=== PATIENT | male | born 1955 | race Caucasian/White ===

== ENCOUNTER → 2017-05-16 | Outpatient (CLI) | payer OTHER ==
[~2017-05-16] MED LIST: DOXA4 PO; FISH OIL + D31 EACH PO; Omeprazole20 M1 PO
== END ==
LOC: LAB SHORT 08:00 → LAB 08:00 → LAB FUT 05-11 15:35
DX: K21.9 Gastro-esophageal reflux disease without esophagitis (principal)
CPT/HCPCS: 87338

== ENCOUNTER 2017-07-13 07:49 | Day surgery (SDC) | payer OTHER ==
[~2017-07-13] VITALS: Ht 172.7 cm; Wt 93.4 kg
== END 2017-07-13 23:06 | disposition home or self-care (01) ==
LOC: ORSCMMR 07:49 → ORD 09:00 → ORSCMMR 23:06
PROVIDERS: Internal Medicine Gastroenterology
PROC: 0DB68ZX Excision of Stomach, Via Natural or Artificial Opening Endoscopic, Diagnostic (ICD-10-PCS; principal; 2017-07-13 09:00)
PROC: 0DB48ZX Excision of Esophagogastric Junction, Via Natural or Artificial Opening Endoscopic, Diagnostic (ICD-10-PCS; principal; 2017-07-13 09:00)
PROC: 0DBP8ZX Excision of Rectum, Via Natural or Artificial Opening Endoscopic, Diagnostic (ICD-10-PCS; principal; 2017-07-13 09:00)
PROC: 0DBN8ZX Excision of Sigmoid Colon, Via Natural or Artificial Opening Endoscopic, Diagnostic (ICD-10-PCS; principal; 2017-07-13 09:00)
PROC: 0DBM8ZX Excision of Descending Colon, Via Natural or Artificial Opening Endoscopic, Diagnostic (ICD-10-PCS; principal; 2017-07-13 09:00)
PROC: 0DB58ZX Excision of Esophagus, Via Natural or Artificial Opening Endoscopic, Diagnostic (ICD-10-PCS; principal; 2017-07-13 09:00)
PROC: 0DBK8ZX Excision of Ascending Colon, Via Natural or Artificial Opening Endoscopic, Diagnostic (ICD-10-PCS; principal; 2017-07-13 09:00)
DX: K21.9 Gastro-esophageal reflux disease without esophagitis (principal); K44.9 Diaphragmatic hernia without obstruction or gangrene; Z12.11 Encounter for screening for malignant neoplasm of colon; Z86.010 Personal history of colon polyps; D12.2 Benign neoplasm of ascending colon; D12.4 Benign neoplasm of descending colon; D12.5 Benign neoplasm of sigmoid colon; D12.8 Benign neoplasm of rectum; Z87.891 Personal history of nicotine dependence; Z79.899 Other long term (current) drug therapy
CPT/HCPCS: 88305; 88342; J7120

== ENCOUNTER 2023-05-20 16:29 | Observation (INO) | payer OTHER ==
[~2023-05-20] VITALS: Ht 170.2 cm; Wt 104.9 kg
[2023-05-20 17:00] LABS: BASOPHILS ABSOLUTE AUTO 0.07 K/mm3 (0.00-0.23); BASOPHILS PERCENT AUTO 0 % (0-2); EOSINOPHILS ABSOLUTE AUTO 0.24 K/mm3 (0.00-0.68); EOSINOPHILS PERCENT AUTO 1 % (0-6); Hematocrit 44.5 % (37.0-53.0); Hemoglobin 15.1 g/dL (13.5-17.5); IMMATURE GRAN ABSOLUTE AUTO 0.05 K/mm3 (0.00-0.10); IMMATURE GRAN PERCENT AUTO 0 % (0-1); LYMPHOCYTES ABSOLUTE AUTO 2.44 K/mm3 (0.84-5.20); LYMPHOCYTES PERCENT AUTO 14 % (21-46); MONOCYTES ABSOLUTE AUTO 1.59 K/mm3 (0.16-1.47); MONOCYTES PERCENT AUTO 9 % (4-13); Mean Corpuscular HGB 30.2 pg (26.0-34.0); Mean Corpuscular HGB Conc 33.9 g/dL (31.5-36.5); Mean Corpuscular Volume 89 fL (80-100); NEUTROPHILS ABSOLUTE AUTO 12.57 K/mm3 (1.96-9.15); NEUTROPHILS PERCENT AUTO 74 % (41-73); Platelet Count 427 K/mm3 (150-400); RDW Coefficient Variation 13.9 % (11.7-14.2); RDW Standard Deviation 44.8 fL (35.1-46.3); White Blood Cell Count 16.96 K/mm3 (4.00-11.30)
[2023-05-20 17:37] LABS: Albumin/Globulin Ratio 0.7 (0.8-1.8); Bilirubin, Total 0.5 mg/dL (0.1-1.0); Bun/Creatinine Ratio 12.2 (12.0-20.0); Calcium, Blood 9.4 mg/dL (8.5-10.1); Creatinine, Blood 1.15 mg/dL (0.60-1.20); Globulin, Blood 4.4 g/dL (2.2-4.0); Potassium, Blood 3.6 mmol/L (3.5-5.5); Total Protein, Blood 7.4 g/dL (6.4-8.2)
[2023-05-20] MEDS ORDERED: NS 1,000 ML IV SCH (20:45)
[2023-05-20] MEDS ORDERED: Ondansetron HCl 2 MG / ML 2ML Vial IV ONE (20:45)
[2023-05-20] MEDS ORDERED: HYDROmorphone HCl/Pf 1MG SYR IV ONE (20:45)
[2023-05-20] MEDS ORDERED: Piperacillin/Tazobactam Sod 4.5 GM in NS 100 ML IV ONE (20:45)
[2023-05-20] MEDS ORDERED: OMEP20ER PO (21:17)
[2023-05-20] MEDS ORDERED: Ventolin/Prove6.7 GM INH (21:17)
[2023-05-20] MEDS ORDERED: ATORVASTATIN CA20 MG PO (21:17)
[2023-05-20] MEDS ORDERED: FLU VACC QS2023-24(6MOS UP)/PF 60 MCG/0.5 ML SYRINGE IM ONE (22:30)
[2023-05-20] MEDS ORDERED: Albuterol HFA200 ACT/6.7 GM INH INH PRN (22:45)
[2023-05-20] MEDS ORDERED: Pantoprazole Sodium 40 MG Injection IV SCH (23:00)
[2023-05-20 23:59] VITALS: BP 139/83
[2023-05-21] VITALS (13 sets, daily range): BP systolic 101–124; BP diastolic 57–94
[2023-05-21] MEDS ORDERED: Ondansetron HCl 2 MG / ML 2ML Vial IV PRN (00:25)
[2023-05-21] MEDS ORDERED: FentaNYL Citrate 50 MCG/ML 2 ML Injection IV PRN (00:25)
[2023-05-21 06:54] LABS: BASOPHILS ABSOLUTE AUTO 0.09 K/mm3 (0.00-0.23); BASOPHILS PERCENT AUTO 1 % (0-2); EOSINOPHILS ABSOLUTE AUTO 0.29 K/mm3 (0.00-0.68); EOSINOPHILS PERCENT AUTO 2 % (0-6); Hematocrit 41.2 % (37.0-53.0); Hemoglobin 13.8 g/dL (13.5-17.5); IMMATURE GRAN ABSOLUTE AUTO 0.06 K/mm3 (0.00-0.10); IMMATURE GRAN PERCENT AUTO 0 % (0-1); LYMPHOCYTES ABSOLUTE AUTO 2.07 K/mm3 (0.84-5.20); LYMPHOCYTES PERCENT AUTO 14 % (21-46); MONOCYTES PERCENT AUTO 12 % (4-13); Mean Corpuscular HGB 29.4 pg (26.0-34.0); Mean Corpuscular HGB Conc 33.5 g/dL (31.5-36.5); Mean Corpuscular Volume 88 fL (80-100); Mean Platelet Volume 9.5 fL (9.1-12.4); NEUTROPHILS ABSOLUTE AUTO 10.98 K/mm3 (1.96-9.15); NEUTROPHILS PERCENT AUTO 71 % (41-73); Platelet Count 412 K/mm3 (150-400); RDW Coefficient Variation 13.9 % (11.7-14.2); RDW Standard Deviation 44.8 fL (35.1-46.3); White Blood Cell Count 15.39 K/mm3 (4.00-11.30)
[2023-05-21] MEDS ORDERED: Indocyanine Green 25 MG Vial IV STA (07:13)
[2023-05-21 07:25] LABS: Albumin, Blood 2.6 g/dL (3.4-5.0); Albumin/Globulin Ratio 0.6 (0.8-1.8); Bilirubin, Total 0.8 mg/dL (0.1-1.0); Bun/Creatinine Ratio 10.5 (12.0-20.0); Calcium, Blood 8.9 mg/dL (8.5-10.1); Creatinine, Blood 1.05 mg/dL (0.60-1.20); Globulin, Blood 4.1 g/dL (2.2-4.0); Potassium, Blood 4.1 mmol/L (3.5-5.5); Total Protein, Blood 6.7 g/dL (6.4-8.2)
--- NOTE | 2023-05-21 07:50 | NUR ---
BEDSIDE REPORT GUDELIA BLOOD AND THIS RN COMPLETED BEDSIDE REPORT. AT TIME OF REPORT PT WAS ALERT, ORIENTED AND ABLE TO PARTICIPATE WITH REPORT. PT ASSESSED FOR PAIN AT TIME OF REPORT, PT DENIED PAIN. PT ASSESSED FOR ANY QUESTIONS OR CONCERNS. PT WANTED TO KNOW WHEN HE WOULD GO TO OR, PT EDUCATED THAT OR TIME WAS UNDETERMINED BUT HE WAS SECOND IN LINE FOR SURGERY WITH DR. VAZQUEZ TODAY. HE WAS ALSO EDUCATED THAT IF ANOTHER PATIENT DEVELOPS A MORE LIFE THREATENING NEED THEY WILL GO FIRST. PT VERBALIZED UNDERSTANDING. PT WISHED TO REST. LIGHT TURNED OFF, CALL LIGHT WITHIN REACH AND DOOR CLOSED AFTER REPORT WAS COMPLETE.
--- NOTE | 2023-05-21 08:10 | NUR ---
PT ADMITTED THIS SHIFT FOR PREOP GALL BLADDER. PT DENIED NEED FOR PAIN MEDS.NPO SINCE ARRIVAL.VOIDING.
--- NOTE | 2023-05-21 08:30 | NUR ---
PAIN DURING AM ASSESSMENT PT EXPRESSED FRUSTRATION THAT HE HAD NOT BEEN GIVEN PAIN MEDICATION SINCE HE WAS IN THE ER AND WANTED TO KNOW WHY. PT REMINDED THAT PAIN WAS ASSESSED DURING SHIFT REPORT AND HE HAD DENIED PAIN. PT STATED "DON'T YOU JUST ASSUME THE PATIENT HAS PAIN?" PT WAS EDUCATED THAT IT IS UNSAFE TO ASSUME A PATIENT HAS PAIN AND STAFF ARE REQUIRED TO ASSESS FOR PAIN. PT WAS ENCOURAGED TO COMMUNITCATE HIS PAIN LEVEL AND CONCERNS TO STAFF IN ORDER TO HAVE APPROPRIATE PAIN MANAGEMENT. PT THEN STATED HE HAS ASKED QUESTIONS ABOUT HIS CARE BUT HAS BEEN TOLD "I DON'T KNOW" TO MANY OF HIS QUESTIONS. PT WAS EDUCATED THAT STAFF DO NOT ALWAYS HAVE THE ANSWER TO QUESTIONS THAT ARE ASKED BUT WE WILL ATTEMPT TO PROVIDE LOOK FOR AND PROVIDE ANSWERS TO HIS QUESTIONS. PT AND HIS SPOUSE APPEARED TO UNDERSTAND EDUCATION. IV PAIN MEDICATION PROVIDED PER EMAR, PT REPORTED IMPROVED PAIN CONTROL AFTER FENTANYL. AFTER PAIN MEDICATION PT RATED HIS PAIN AT 4/10 AND STATED PAIN LEVEL WAS TOLERABLE.
[2023-05-21] MEDS ORDERED: Lactated Ringer's 1,000 ML IV ONE (08:58)
[2023-05-21] MEDS ORDERED: Enoxaparin 40 MG/0.4 ML SYR SC SCH (09:00)
--- NOTE | 2023-05-21 09:00 | NUR ---
DR. CULLEN ROUNDED AT [address] VAZQUEZ ROUNDED AT APPROXIMATELY 0820.
--- NOTE | 2023-05-21 09:15 | NUR ---
PT TAKEN TO DAY SURGERY AT 0915 BY BRITTNEY WEBBER RN.
--- NOTE | 2023-05-21 09:22 | NUR ---
Ambulatory in Day Surgery History, Chart, Medications and Allergies reviewed before start of procedure.Lungs clear T/O to Auscultation. Patient confirms NPO status and agrees with scheduled surgery.
[2023-05-21] MEDS ORDERED: Bupivacaine 0.5% HCl 5 MG/ML 30MLVIAL ONE (09:38)
[2023-05-21] MEDS ORDERED: propofoL 20 ML IV ONE (09:43)
[2023-05-21] MEDS ORDERED: Rocuronium Bromide 10 MG/ML 5ML Injection IV ONE (09:44)
[2023-05-21] MEDS ORDERED: Ketorolac Tromethamine 30mg Vial ONE (09:44)
[2023-05-21] MEDS ORDERED: Glycopyrrolate 0.2 MG/ML 5ML VIAL ONE (09:44)
[2023-05-21] MEDS ORDERED: FentaNYL Citrate 50 MCG/ML 2 ML Injection ONE ×2 (09:44→10:30)
[2023-05-21] MEDS ORDERED: Sugammadex Sodium 200 MG/2ML SDV (100 MG/ML) ONE (09:44)
[2023-05-21] MEDS ORDERED: Dexamethasone Sod Phos 10 MG/ML 1ML VIAL ONE (09:44)
[2023-05-21] MEDS ORDERED: Ondansetron HCl 2 MG / ML 2ML Vial ONE (09:44)
[2023-05-21] MEDS ORDERED: CefOXitin Sodium 2,000 MG in NS 100 ML IV SCH (10:00)
[2023-05-21] MEDS ORDERED: Labetalol HCL 5 MG/ML 4ML Injection (Single Dose) ONE (10:40)
--- NOTE | 2023-05-21 13:19 | NUR ---
PT ARRIVED BACK TO THE ROOM AT APPROXIMATELY 1300. PAIN MANAGED WITH FENTANYL. LAP SITES X4 CLOSED WITH WOUND GLUE C/D/I. PT ALERT AND ORIENTED X3, PT NEEDED REORIENTED TO PLACE. PT STATED MEMORY OF HIS SITUATION IS RETURNING. ABD REMAINS DISTENDED. PT RESTING IN BED, S/O AT THE BEDSIDE, CALL LIGHT WITHIN REACH.
--- NOTE | 2023-05-21 13:24 | NUR ---
UNABLE TO COMPLETE HOME MEDICATION RECONCILIATION AT THIS TIME. PT AND HIS ARE UNSURE OF DOSAGES. PT'S PHARMACY IS CLOSED, UNABLE TO VERIFY HOME MEDICATIONS THROUGHT THEM. PT'S STATES SHE WILL CALL WHEN SHE GETS HOME TO RELAY DOSAGES AND INSTRUCTIONS OFF OF MEDICATION BOTTLES.
[2023-05-21] MEDS ORDERED: Acetaminophen 325 MG TABLET PO PRN (15:25)
[2023-05-21] MEDS ORDERED: OxyCODONE HCL 5 MG TAB PO PRN (15:25)
[2023-05-21] MEDS ORDERED: OXYC5 PO (17:39)
[2023-05-21] MEDS ORDERED: AMOCLA875 PO (17:39)
[2023-05-21] MEDS ORDERED: Atorvastatin 40 MG Tab PO SCH (18:00)
--- NOTE | 2023-05-21 18:12 | NUR ---
DISCHARGE NOTE: PATIENT AND WERE EDUCATED ON DISCHARGE INSTRUCTIONS. BOTH VERBALIZED UNDERSTANDING OF INSTRUCTIONS AND HAD NO FURTHER QUESTIONS AT THIS TIME. BOTH IV'S WERE TAKEN OUT AND WNL. PAIN IS MANAGED WITH PO PAIN MEDS. HARD PERSCRIPTIONS WERE ALREADY FILLED BY AND ALSO FAXED TO THEIR PREFERRED PHARMACY. PATIENTS ABD X4 LAP SITES ARE C/D/I WITH WOUND GLUE. HE IS TOLERATING PO INTAKE AND IS VOIDING. PATIENT IS DRESSED AND HAS PERSONAL ITEMS IN THE ROOM GATHERED. HE IS BEING WHEELCHAIRED OUT TO HIS WIFES CAR TO BE TAKEN HOME.
--- NOTE | 2023-05-21 19:15 | NUR ---
PRIOR TO DISCHARGE PT WAS REMINDED TO TAKE HIS EVENING HOME MEDICATIONS SINCE HE DID NOT TAKE THEM HERE. HE WAS ALSO EDUCATED TO START HIS ANTIBIOTIC TONIGHT WHEN HE GETS HOME.
[2023-05-21] MEDS ORDERED: Doxazosin Mesylate 2 MG Tab PO SCH (20:00)
[2023-05-22] MEDS ORDERED: Omeprazole 20 MG CapCR PO SCH (06:00)
== END 2023-05-21 18:14 | disposition home or self-care (01) ==
LOC: ER 16:29 → SURS 16:30
PROVIDERS: Family Medicine; Physician Assistant; Surgery; ADMIT Internal Medicine
PROC: 8E0W4CZ Robotic Assisted Procedure of Trunk Region, Percutaneous Endoscopic Approach (ICD-10-PCS; principal; 2023-05-21 09:30)
PROC: 0FT44ZZ Resection of Gallbladder, Percutaneous Endoscopic Approach (ICD-10-PCS; principal; 2023-05-21 09:30)
DX: K80.00 Calculus of gallbladder with acute cholecystitis without obstruction (principal); N40.0 Benign prostatic hyperplasia without lower urinary tract symptoms; I25.10 Atherosclerotic heart disease of native coronary artery without angina pectoris; K57.30 Diverticulosis of large intestine without perforation or abscess without bleeding; K21.9 Gastro-esophageal reflux disease without esophagitis; R65.10 Systemic inflammatory response syndrome (SIRS) of non-infectious origin without acute organ dysfunction; K42.9 Umbilical hernia without obstruction or gangrene; N28.1 Cyst of kidney, acquired; Z87.891 Personal history of nicotine dependence
CPT/HCPCS: 36415; 74177; 76705; 80053; 83605; 83690; 85025; 88304; 93005; 93010; 94760; 96365-59; 96375; 99285-25; A9270; C9113; G0378; J0694; J1100; J1170; J1885; J2405; J2543; J2704; J3010; J7030; J7120; Q9967

== ENCOUNTER 2024-07-05 10:02 | Emergency (ER) | payer OTHER ==
[~2024-07-05] VITALS: Ht 175.3 cm; Wt 99.8 kg
[~2024-07-05 10:02] MED LIST changes: +AMOCLA875 PO; +ATORVASTATIN CA20 MG PO; +OMEP20ER PO; +OXYC5 PO; +Ventolin/Prove6.7 GM INH
[2024-07-05] MEDS ORDERED: NS 1,000 ML IV SCH (10:30)
[2024-07-05 11:13] LABS: BASOPHILS ABSOLUTE AUTO 0.07 K/mm3 (0.00-0.23); BASOPHILS PERCENT AUTO 1 % (0-2); EOSINOPHILS ABSOLUTE AUTO 0.38 K/mm3 (0.00-0.68); EOSINOPHILS PERCENT AUTO 3 % (0-6); Hematocrit 45.3 % (37.0-53.0); Hemoglobin 15.4 g/dL (13.5-17.5); IMMATURE GRAN ABSOLUTE AUTO 0.06 K/mm3 (0.00-0.10); IMMATURE GRAN PERCENT AUTO 0 % (0-1); LYMPHOCYTES ABSOLUTE AUTO 2.15 K/mm3 (0.84-5.20); LYMPHOCYTES PERCENT AUTO 15 % (21-46); MONOCYTES ABSOLUTE AUTO 1.69 K/mm3 (0.16-1.47); MONOCYTES PERCENT AUTO 12 % (4-13); Mean Corpuscular Volume 88 fL (80-100); Mean Platelet Volume 9.5 fL (9.1-12.4); NEUTROPHILS ABSOLUTE AUTO 10.35 K/mm3 (1.96-9.15); NEUTROPHILS PERCENT AUTO 70 % (41-73); Platelet Count 447 K/mm3 (150-400); RDW Coefficient Variation 14.1 % (11.7-14.2); Red Blood Cell Count 5.14 M/mm3 (4.30-5.90)
[2024-07-05 11:19] LABS: Influenza A, PCR NEGATIVE (NEGATIVE); Influenza B, PCR NEGATIVE (NEGATIVE); Resp Syncytial Virus, PCR NEGATIVE (NEGATIVE); SARS-Cov-2 (COVID-19) PCR, MMC NEGATIVE (NEGATIVE)
[2024-07-05 11:34] LABS: Albumin, Blood 3.4 g/dL (3.4-5.0); Albumin/Globulin Ratio 0.8 (0.8-1.8); Bilirubin, Total 0.8 mg/dL (0.1-1.0); Bun/Creatinine Ratio 14.3 (12.0-20.0); Calcium, Blood 9.3 mg/dL (8.5-10.1); Creatinine, Blood 0.98 mg/dL (0.60-1.20); Globulin, Blood 4.3 g/dL (2.2-4.0); Potassium, Blood 3.8 mmol/L (3.5-5.5); Total Protein, Blood 7.7 g/dL (6.4-8.2)
[2024-07-05 15:22] LABS: Source, Urine Clean Catch
[2024-07-05 15:30] LABS: Appearance, Urine Hazy (Clear); Bilirubin, Urine Neg (Neg); Blood, Urine Neg (Neg); Color, Urine Yellow (P-Yellow); Glucose Qualitative, Urine Neg (Neg); Ketones, Urine Neg (Neg); Leukocyte Esterase, Urine 1+ (Neg); Nitrite, Urine Neg (Neg); Protein, Urine 1+ (Neg); Specific Gravity, Urine 1.025 (1.003-1.022); Urobilinogen, Urine 1+ (Normal)
[2024-07-05 16:02] LABS: Mucus Mod (0-Heavy)
[2024-07-05 16:03] LABS: Bacteria Few /hpf; Red Blood Cells, Urine 0-2 /hpf (0-2); Squamous Epithelial Cells Not Seen /hpf (Few)
[2024-07-05 16:45] VITALS: BP 125/86
[2024-07-05] MEDS ORDERED: Amoxicillin/Clavulanate K 875 MG Tab PO ONE (16:55)
[2024-07-05] MEDS ORDERED: MetroNIDAZOLE 500 MG Tab PO ONE (16:55)
[2024-07-05] MEDS ORDERED: AMOCLA875 PO (17:25)
[2024-07-05] MEDS ORDERED: ONDA4 PO (17:25)
[2024-07-05] MEDS ORDERED: ACET500 PO (17:25)
[2024-07-05] MEDS ORDERED: METR500 PO (17:25)
== END 2024-07-05 17:42 | disposition home or self-care (01) ==
LOC: ER 10:02
PROVIDERS: Student in an Organized Health Care Education/Training Program
DX: K57.32 Diverticulitis of large intestine without perforation or abscess without bleeding (principal); K63.89 Other specified diseases of intestine; N28.9 Disorder of kidney and ureter, unspecified; F17.200 Nicotine dependence, unspecified, uncomplicated; Z79.1 Long term (current) use of non-steroidal anti-inflammatories (NSAID); Z79.899 Other long term (current) drug therapy; Z79.2 Long term (current) use of antibiotics
CPT/HCPCS: 0241U; 74177; 80053; 81001; 83690; 85025; 87086; 93005; 93010; 99284-25; A9270; Q9967